=== PATIENT | male | born 1985 | race Caucasian/White ===

== ENCOUNTER 2018-05-24 20:03 | Emergency (ER) | payer BC ==
--- NOTE | 2018-05-24 20:15 | Emergency Department Record ---
History of Present Illness - General Chief Complaint: Abdominal Pain Stated Complaint: ABDOMINAL PAIN Time Seen by Provider: 05/24/18 20:08 Source: Patient Mode of Arrival: Ambulatory Limitations: No limitations - History of Present Illness Initial Comments: 32 yo male presents with left upper abdominal pain since yesterday morning upon waking. No fevers, chills, nausea, vomiting, diarrhea, dysuria, hematuria. The pain is constant. The pain is sharp. No radiation. It hurts to palpate and change positions. He had a David procedure in 04-02. EGD in 2015 demonstrated the David and GERD. No dark or bloody stools. He was seen in the [facility]. His CBC, CMP, and Lipase were unremarkable for significant changes. He was sent to the ED for further evaluation. His next GI appointment is on the 02 of June. MD Complaint: Abdominal pain -: Days(s) (2) Location: LUQ Radiation: LUQ Migration to: LUQ Severity: Moderate Quality: Aching Consistency: Constant Improves With: Nothing Worsens With: Movement, Other (Palpation) Context: Other Associated Symptoms: Denies other symptoms - Related Data Allergies Allergy/AdvReac Type Severity Reaction Status Date / Time No Known Drug Allergies Allergy Unverified 05/24/18 18:34 Review of Systems Constitutional: Denies: Chills, Fever, Malaise, Weakness Eyes: Denies: Eye discharge ENT: Denies: Congestion, Throat pain Respiratory: Denies: Cough, Dyspnea Cardiovascular: Denies: Chest pain, Palpitations, Syncope Endocrine: Denies: Fatigue Gastrointestinal: Reports: As per HPI, Abdominal pain. Denies: Diarrhea, Nausea , Vomiting Genitourinary: Denies: Dysuria, Frequency Musculoskeletal: Denies: Arthralgia, Back pain, Myalgia Skin: Denies: Bruising, Change in color, Rash Neurological: Denies: Confusion, Headache Psychiatric: Denies: Anxiety Hematological/Lymphatic: Denies: Blood Clots, Easy bleeding, Easy bruising Past Medical History - SOCIAL HISTORY Smoking Status: Former smoker - RESPIRATORY Hx Respiratory Disorders: Yes Hx Asthma: Yes (exercise induced) Hx Bronchitis: Yes - CARDIOVASCULAR Hx Cardio Disorders: No - NEURO Hx Neuro Disorders: No - GI Hx GI Disorders: Yes Hx Reflux: Yes Hx Irritable Bowel: Yes - Hx Genitourinary Disorders: No - ENDOCRINE Hx Endocrine Disorders: No - MUSCULOSKELETAL Hx Musculoskeletal Disorders: No - PSYCH Hx Psych Problems: No - HEMATOLOGY/ONCOLOGY Hx Hematology/Oncology Disorders: No Family Medical History Hx Cancer: Brother/Sister, Grandparents *Cancer Comment: Paternal Grandmother-colon cancer, sister-skin cancer Physical Exam - General General Appearance: Alert, Oriented x3, Cooperative, No acute distress Limitations: No limitations - Head Head exam: Atraumatic, Normal inspection - Eye Eye exam: Normal appearance, PERRL. negative: Conjunctival injection, Scleral icterus - ENT ENT exam: Normal exam, Mucous membranes moist Ear exam: Normal external inspection Nasal Exam: Normal inspection Mouth exam: Normal external inspection - Neck Neck exam: Normal inspection - Respiratory Respiratory exam: Normal lung sounds bilaterally. negative: Respiratory distress - Cardiovascular Cardiovascular Exam: Regular rate, Normal rhythm, Normal heart sounds - GI/Abdominal GI/Abdominal exam: Soft, Tenderness (tender left upper quadrant, otherwise the abdomen is very soft and non tender, no rash, no mass). negative: Distended, Guarding, Rebound, Rigid - Rectal Rectal exam: Deferred - exam: Deferred - Extremities Extremities exam: Normal inspection - Back Back exam: Denies: CVA tenderness (R), CVA tenderness (L) (No posterior tenderness) - Neurological Neurological exam: Alert, Oriented X3 - Psychiatric Psychiatric exam: Normal affect, Normal mood - Skin Skin exam: Dry, Intact, Normal color, Warm Course Vital Signs 05/24/18 20:06 Temperature 99.1 F Pulse Rate [ 71 Left] Respiratory 16 Rate Blood Pressure 147/99 [Left Arm] Pulse Ox 98 - Reevaluation(s) Reevaluation #1: 05/24/18 21:13 No acute process on the CT Mild diverticulosis without diverticulitis We discussed the results He does have follow up scheduled with his GI We discussed reasons for immediate re-evaluation as well. Disposition Disposition: Discharge Clinical Impression: Abdominal pain, left upper quadrant Disposition: Home, Self-Care Condition: (1) Good Instructions: Abdominal Pain (ED) Additional Instructions: Call your doctor for the next available follow up appointment Return to the ER for a recheck if worse, any new concerns or questions Take the prescriptions provided as directed Review this ER visit and the tests performed with your family doctor Forms: Patient Portal Access Time of Disposition: 21:14 Quality - Quality Measures Quality Measures: N/A - Blood Pressure Screening Does Patient Have Any of the Following: No Blood Pressure Classification: Hypertensive Reading Systolic Measurement: 147 Diastolic Measurement: 99 Screening for High Blood Pressure: < Pre-Hypertensive BP, F/U Documented > [ [id number]] Pre-Hypertensive Follow-up Interventions: Referral to alternative/primary care provider.
[2018-05-24 20:40] LABS: URINE APPEARANCE CLEAR; URINE BILIRUBIN SMALL (NEGATIVE); URINE BLOOD NEGATIVE (NEGATIVE); URINE COLOR YELLOW; URINE GLUCOSE (UA) NEGATIVE (NEGATIVE); URINE KETONE 15 mg/dL (NEGATIVE); URINE LEUKOCYTE ESTERASE NEGATIVE (NEGATIVE); URINE NITRITE NEGATIVE (NEGATIVE)
--- NOTE | 2018-05-26 10:46 | CT SCAN REPORT ---
EXAM: CT SCAN OF THE ABDOMEN AND PELVIS WITH CONTRAST HISTORY: LEFT UPPER QUADRANT ABDOMINAL PAIN SINCE YESTERDAY. TECHNIQUE: Standard CT imaging of the abdomen and pelvis was performed with intravenous contrast. 100 ml of Omnipaque 300 were administered. Comparison: None. FINDINGS: The lung bases are clear. The heart is normal in size. There is no pericardial effusion. There is mild diffuse hepatic steatosis. There is a focal hypodense area within the left hepatic lobe with early peripheral enhancement. The appearance suggests a small hemangioma. This measures approximately 2 cm in maximal dimension. No other focal hepatic abnormalities are identified. The gallbladder, biliary tree, pancreas, spleen, and adrenal glands are normal. The patient is status post David fundoplication. The stomach and epigastrium are otherwise normal. Both kidneys are unremarkable with no hydronephrosis, mass, or visible calculus. There are a few rare diverticula within the sigmoid colon with no evidence for acute diverticulitis. The large and small bowel loops are otherwise unremarkable. The appendix is normal. There is no pneumoperitoneum or ascites. There are multiple nondistended air filled small bowel loops which is nonspecific. The urinary bladder is normal. The prostate gland is mildly enlarged. There are no acute osseous abnormalities. IMPRESSION: 1. NO ACUTE INTRAABDOMINAL PATHOLOGY. 2. MINOR SIGMOID DIVERTICULOSIS WITH NO DIVERTICULITIS. 3. MILD HEPATIC STEATOSIS. 4. PROBABLE HEMANGIOMA WITHIN THE LEFT HEPATIC LOBE MEASURING 2 CM IN MAXIMAL DIMENSION. JOB NUMBER: [id number] MTDD
== END 2018-05-24 21:39 | disposition home or self-care (01) ==
LOC: ER 20:03
DX: R10.12 Left upper quadrant pain (principal); Z87.891 Personal history of nicotine dependence
CPT/HCPCS: 99283 ×2; 81003; 74177; Q9967

== ENCOUNTER 2018-06-30 11:42 | Day surgery (SDC) | payer BC ==
[2018-06-30] MEDS ORDERED: PROPOFOL 10 MG/ML VIAL IV ONE (11:43)
[2018-06-30] MEDS ORDERED: LIDOCAINE 2% MDV (20MG/ML) 20ML VIAL IV ONE (11:43)
--- NOTE | 2018-07-01 08:50 | Operative Note ---
OPERATION: 1. ESOPHAGOGASTRODUODENOSCOPY. 2. COLONOSCOPY. PREOPERATIVE DIAGNOSIS: Diffuse abdominal pain and diarrhea, particularly left upper quadrant pain. POSTOPERATIVE DIAGNOSES: 1. Status post Fazal fundoplication. 2. Irregular GE junction. 3. Normal-appearing terminal ileum and colon, rule out microscopic colitis. PROCEDURE: After informed consent was obtained from the patient, he was placed in the left lateral decubitus position in the endoscopy suite, sedated and monitored by the department of anesthesia. A well-lubricated [id number] gastroscope was placed in the posterior oropharynx under direct visualization and passed to the proximal esophagus. The endoscope was advanced through the proximal, mid, and distal esophagus. The GE junction and esophagus were unremarkable other than some slight irregularity of the squamocolumnar border. The gastric body demonstrated normal distensibility, normal rugal folds. The body, antrum, pylorus, duodenal bulb, and sweep were unremarkable. J-turn views of the proximal stomach revealed a previously constructed Fazal fundoplication which appeared to be intact. The endoscope was then straightened. The GE junction was biopsied. The endoscope was removed from the patient with no new findings noted. Digital rectal exam was then performed which was unremarkable. A well-lubricated [id number] colonoscope was inserted into the rectum and advanced through a somewhat tortuous colon to the cecum. The cecum, cecal bulb, terminal ileum, ascending colon, transverse colon, descending colon, sigmoid colon, and rectum were unremarkable. Random biopsies were obtained to rule out microscopic colitis. Preparation quality was good to excellent. Forward and J-turn views of the rectum and anorectum were unrevealing. The endoscope was straightened, the rectal ampulla deflated, and the endoscope was removed. RECOMMENDATIONS: We will await results of tissue histology before further recommendations are made. There may be a significant functional component to the patient's abdominal complaints. Perhaps a trial of an antispasmodic would be helpful provided there are no sedating side effects or effects on vision. At this point, perhaps Robinul 1 mg 1-3 times daily would be helpful. As for his left upper quadrant pain, to me there seems to be a potential that this is a musculoskeletal issue. As always, thank you for allowing me to participate in the healthcare of your patients. CC: DO ILAN Kelley
== END 2018-06-30 13:57 | disposition home or self-care (01) ==
LOC: HOP 11:42
PROVIDERS: ATTEND Internal Medicine Gastroenterology
DX: R10.9 Unspecified abdominal pain (principal); R19.7 Diarrhea, unspecified; R10.12 Left upper quadrant pain; R63.4 Abnormal weight loss; E80.4 Gilbert syndrome; Z98.890 Other specified postprocedural states; K31.9 Disease of stomach and duodenum, unspecified; K20.8 Other esophagitis